=== PATIENT | male | born 1955 | race Two or more races ===

== ENCOUNTER 2024-06-06 11:03 | Emergency (ER) | payer MEDICARE ==
[~2024-06-06] VITALS: Ht 180.3 cm; Wt 100.0 kg
[2024-06-06] MEDS ORDERED: METF-1211 PO (11:14)
[2024-06-06] MEDS ORDERED: HYDR-4062 PO (11:14)
[2024-06-06] MEDS ORDERED: htn PO (11:14)
[2024-06-06] MEDS ORDERED: LOSA-382 PO (11:14)
[2024-06-06] MEDS: SODIUM CHLORIDE 0.9% 1,000 ML IV ONE (12:15)
[2024-06-06 12:36] LABS: BASOPHILS % (AUTO) 0.6 % (0.0-2.0); EOSINOPHILS % (AUTO) 0.6 % (1.0-6.0); HEMATOCRIT 36.4 % (41-53); HEMOGLOBIN 12.1 g/dL (13.5-17.5); LYMPHOCYTES % (AUTO) 13.5 % (22.0-44.0); MEAN CORPUSCULAR HGB CONC 33.2 G/dL (31.0-37.0); MEAN CORPUSCULAR VOLUME 78 fL (80-100); MONOCYTES # (AUTO) 0.6 K/uL (0.1-1.0); MONOCYTES % (AUTO) 7.8 % (2.0-9.0); NEUTROPHILS # (AUTO) 5.9 K/uL (1.8-7.7); NEUTROPHILS % (AUTO) 77.5 % (40.0-70.0); PLATELET COUNT (AUTO) 277 K/uL (150-450); RED BLOOD CELL COUNT(AUTO) 4.64 MIL/uL (4.50-5.90); RED CELL DISTRIBUTION WIDTH 16.8 % (11.5-14.5); WHITE BLOOD COUNT (AUTO) 7.6 K/uL (4.5-11.0)
[2024-06-06 12:46] LABS: ANION GAP 9 mmol/L (8-16); CARBON DIOXIDE 24 mmol/L (22-29); CHLORIDE 94 mmol/L (98-107); CREATININE 0.75 mg/dL (0.60-1.30); GLOMERULAR FILTR. RATE CALC > 60 mL/min (>60); GLUCOSE,RANDOM 238 mg/dL (70-110); POTASSIUM 3.9 mmol/L (3.5-5.1); SODIUM SERUM 127 mmol/L (136-145); UREA NITROGEN, BLOOD 10 mg/dL (7-18)
[2024-06-06 12:47] LABS: LIPASE 38 U/L (16-77)
[2024-06-06] MEDS ORDERED: SODIUM CHLORIDE 0.9% 100 ML ONE (12:47)
[2024-06-06] MEDS ORDERED: IOHEXOL 350 MG/ML 100 ML VIAL ONE (12:47)
[2024-06-06 12:54] LABS: TROPONIN I-HIGH SENSITIVITY 4 ng/L (<76)
[2024-06-06 13:04] LABS: ALANINE AMINOTRANSFERASE 22 U/L (12-78); ALKALINE PHOSPHATASE 115 U/L (46-116); ASPARTATE AMINOTRANSFERASE 21 U/L (15-37); BILIRUBIN,TOTAL 0.5 mg/dL (0.1-1.0); TOTAL PROTEIN, SERUM 7.2 g/dL (6.4-8.2)
[2024-06-06] MEDS: MORPHINE SULFATE 2 MG/ML SYRINGE IVP ONE (15:23)
[2024-06-06 20:30] VITALS: BP 113/66; PULSE 87; RESP 18; O2SAT 96
== END 2024-06-06 22:44 | disposition admitted as inpatient to this hospital (09) ==
LOC: EMS 11:03
DX: E87.1 Hypo-osmolality and hyponatremia (principal); R19.7 Diarrhea, unspecified; E11.9 Type 2 diabetes mellitus without complications; I10 Essential (primary) hypertension; Z98.890 Other specified postprocedural states
CPT/HCPCS: 99285; 74177; 96360; 80048; 80076; 83605; 83690; 84484; 85025; 36415; 93005; Q9967; J2270; J7030; J7050